=== PATIENT | female | born 1985 | race Caucasian/White ===

== ENCOUNTER 2016-11-26 12:15 | Emergency (ER) | payer MEDICAID ==
[2016-11-26] MEDS ORDERED: ONDANSETRON 4 MG VIAL ONE (13:59)
[2016-11-26] MEDS ORDERED: SODIUM CHLORIDE 0.9% 2,000 ML ONE (13:59)
[2016-11-26] MEDS ORDERED: DILAUDID 1 MG/ML AMP ONE (13:59)
== END 2016-11-26 16:12 | disposition home or self-care (01) ==
LOC: ER 12:15
CPT/HCPCS: 36415; 74022; 80053; 81003; 83690; 84703; 85025; 96361; 96374; 96375